=== PATIENT | male | born 1955 | race African-American/Black ===

== ENCOUNTER 2017-08-26 13:03 | Emergency (ER) | payer MEDICAID, OTHER ==
[~2017-08-26] VITALS: Ht 188 cm; Wt 79.4 kg
[2017-08-26 13:59] VITALS: BP 136/86
[2017-08-26] MEDS ORDERED: PREDNISONE20 MG ORAL (14:50)
[2017-08-26] MEDS ORDERED: BENADRYL25 MG ORAL (14:50)
[2017-08-26] MEDS ORDERED: TRAMADOL HCL50 MG ORAL (14:50)
[2017-08-26] MEDS ORDERED: NORVASC5 MG ORAL (14:51)
--- NOTE | 2017-08-26 15:16 | Emergency Room Report ---
History of Present Illness General Chief Complaint: General Complaint Source: Patient Present Illness HPI The patient is a 62-year-old male with a history of hypertension presenting for swollen lip. He states that he woke with this this morning for no known reason. He states that his blood pressure medication was changed to lisinopril several months prior but had no prior reaction. He denies any pain. He denies difficulty swallowing or shortness of breath. He denies any rash or itching. He denies any other symptoms including N, V, F, chills, diarrhea, abd pain, CP, cough Allergies: Coded Allergies: No Known Allergies (Unverified , 08/26/17) Patient History Past Medical History: see triage record Pertinent Family History: none Reviewed Nursing Documentation: PMH: Agreed, PSxH: Agreed Nursing Documentation-PMH Past Medical History: No Stated History Hx Hypertension: Yes Hx Gastrointestinal Problems: No - BPH Review of Systems All Other Systems: negative except mentioned in HPI Physical Exam Vital Signs Date Time Temp Pulse Resp B/P (MAP) Pulse Ox O2 Delivery O2 Flow Rate FiO2 08/26/17 13:09 98.1 69 20 136/86 100 Room Air Sp02 EP Interpretation: reviewed, normal General Appearance: no apparent distress, alert, GCS 15, non-toxic Head: normocephalic, atraumatic Eyes: bilateral eye normal inspection, bilateral eye PERRL ENT: hearing grossly normal, normal pharynx, normal voice, uvula midline, moist mucus membranes, other - angioedema to upper lip only Neck: full range of motion, supple/symm/no masses Respiratory: chest non-tender, lungs clear, normal breath sounds, speaking full sentences Cardiovascular #1: regular rate, rhythm, no edema Musculoskeletal: back normal, gait/station normal, normal range of motion, tender - bilat lumbar paraspinal muscles Neurologic: alert, oriented x3, responsive, motor strength/tone normal, sensory intact, speech normal Psychiatric: judgement/insight normal, memory normal, mood/affect normal, no suicidal/homicidal ideation Skin: normal color, no rash, warm/dry, well hydrated Lymphatic: no adenopathy Medical Decision Making PA Attestation Dr. Hair is my supervising physician. Patient management was discussed with my supervising physician Diagnostic Impression: Primary Impression: Angioedema Qualified Codes: T78.3XXA - Angioneurotic edema, initial encounter Additional Impression: Chronic back pain Qualified Codes: M54.5 - Low back pain; G89.29 - Other chronic pain ER Course The patient is a 62-year-old male with a history of hypertension on KARIN-I presenting for swollen lip. DDx considered but not limited to: KARIN-I induced angioedema, anaphylaxis, dermatitis, herpes, among others PE: vitals WNL. NAD HEENT: There is edema to upper lip only. Non tender. No discoloration. Oropharynx patent. No edema. Lungs CTA bilat Skin is warm and dry. No rash Pt is given prednisone and benadryl and is watched in the ED. Swelling has decreased and no new symptoms have arisen. the patient will stop taking lisinopril. he is given prescription for norvasc, Benadryl, and prednisone and needs to FU with PMD. Last Vital Signs Date Time Temp Pulse Resp B/P (MAP) Pulse Ox O2 Delivery O2 Flow Rate FiO2 08/26/17 13:59 98.1 68 20 136/86 100 Room Air Status: improved Disposition: HOME, SELF-CARE Condition: Improved Scripts Amlodipine Besylate (Norvasc) 5 Mg Tablet 5 MG ORAL DAILY, #30 TAB Prov: TERZIAN,NOEMÍ P.A. 08/26/17 Diphenhydramine Hcl* (BENADRYL*) 25 Mg Capsule 25 MG ORAL Q6H Y for Itching, #30 CAP Prov: TERZIAN,NOEMÍ P.A. 08/26/17 Prednisone* (PREDNISONE*) 20 Mg Tablet 40 MG ORAL DAILY, #10 TAB Prov: TERZIAN,NOEMÍ P.A. 08/26/17 Tramadol Hcl* (ULTRAM*) 50 Mg Tablet 50 MG ORAL Q6H Y for For Pain, #10 TAB 0 Refills Prov: TERZIAN,NOEMÍ P.A. 08/26/17 Patient Instructions: Angioedema, Chronic Back Pain Additional Instructions: I discussed my findings with the patient. All questions and concerns have been answered. Treatment and medication compliance have been addressed. I advised the patient that they need to follow up with PMD in 3-5 days. Return to ED if symptoms worsen, new symptoms arise such as shortness of breath, or if needed for any reason. Patient verbalized understanding of discharge instructions. The patient was told he needs to stop taking lisinopril and see primary doctor as soon as possible. NOEMÍ LOMELI Aug 26, 2017 15:16
[2017-08-26 15:20] VITALS: BP 136/86
== END 2017-08-26 15:00 | disposition home or self-care (01) ==
LOC: EMR 13:36
DX: T78.3XXA Angioneurotic edema, initial encounter (principal); I10 Essential (primary) hypertension; G89.29 Other chronic pain; M54.9 Dorsalgia, unspecified; Z79.899 Other long term (current) drug therapy; N40.0 Benign prostatic hyperplasia without lower urinary tract symptoms
CPT/HCPCS: 99284

== ENCOUNTER 2019-08-16 22:40 | Inpatient (IN) | payer OTHER ==
[~2019-08-16] VITALS: Ht 182.9 cm; Wt 95.3 kg
[~2019-08-16 22:40] MED LIST: BENADRYL25 MG ORAL; NORVASC5 MG ORAL; PREDNISONE20 MG ORAL; TRAMADOL HCL50 MG ORAL
[2019-08-16 23:02] VITALS: BP 179/88
--- NOTE | 2019-08-16 23:04 | Emergency Room Report ---
History of Present Illness General Chief Complaint: Substance Abuse Source: Patient, EMS, Law Enforcement Present Illness HPI The patient was brought in by [facility] and [employer]. A concerned bystander saw the patient was altered. Allegedly he has been doing PCP. [employer] were required to subdue the patient. The patient denies any pain at this time for suicidal intent. He is having difficulty answering questions. Accu-Chek in the field was normal. An EKG was performed that showed left ventricular hypertrophy. 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 Nursing Documentation: PMH: Agreed; PSxH: Agreed Nursing Documentation-PMH Hx Hypertension: Yes Hx Gastrointestinal Problems: No - BPH Review of Systems All Other Systems: limited Physical Exam Vital Signs Date Time Temp Pulse Resp B/P (MAP) Pulse Ox O2 Delivery O2 Flow Rate FiO2 08/16/19 22:50 98.2 128 20 128/88 (101) 98 Room Air Sp02 EP Interpretation: reviewed, normal General Appearance: well appearing, no apparent distress, lethargic Head: normocephalic Eyes: bilateral eye PERRL, bilateral eye Scleral Injection ENT: moist mucus membranes Neck: supple Respiratory: lungs clear, normal breath sounds Cardiovascular #1: tachycardia Cardiovascular #2: 2+ radial (R) Gastrointestinal: normal inspection, non tender, non-distended, decreased bowel sounds, scaphoid Musculoskeletal: back normal, normal range of motion Neurologic: motor strength/tone normal, DTRs symmetric, sensory intact, no Babinski, other - Lethargic occasionally responding to verbal commands Psychiatric: depressed affect Skin: no rash Procedures Critical Care Time Critical Care Time Total Critical Care Time: 30 min bedside evaluation and treatment excludes procedures (EKG). Reason for critical care: Multiple assessments for restraints, non-STEMI Possible complications: hypotension, hypertension, OH, shock, arrhythmias, metabolic acidosis, end organ damage, respiratory failure. Interventions: Restraints, reassessment, aspirin and nitroglycerin Course: Patient presented after alleged ingestion of PCP and not responding to external stimuli. Patient necessitated restraints. No further sedation was needed. Reassessment led to removal of restraints. Patient with renal insufficiency and marginally normal troponin. Repeat troponin is elevated. Patient treated with aspirin and nitroglycerin paste. Repeated EKG performed unchanged. Patient admitted to telemetry with discussion with admitting physician. Consultations: nursing staff, EMS, [employer], admitting physician Performed by: Dr. Hair Tolerated well condition = serious Medical Decision Making Medical: Substance Abuse Reaction to Intervention: No change Restraint Reassesment I, Han Hair MD, have personally evaluated this patient. Laboratory tests have been reviewed and addressed accordingly. The patient is deemed to present a danger to themselves and/or others. This is based on the exam, history ( provided by EMS and [employer]) and observed or reported behavior. Attempts for non-invasive measures have been considered and/or attempted, however, have been futile. It is in the best interest of the nursing staff, the patient, and others involved in this patient's care that behavioral restraints be applied. Patient evaluation reveals the following: Not responding to external stimuli or commands. Diagnostic Impression: Primary Impression: NSTEMI (non-ST elevated myocardial infarction) Additional Impression: Substance abuse ER Course Patient presents after alleged PCP use with altered mentation. Differential includes PCP ingestion, polypharmacy abuse, electrolyte imbalance amongst others. There is no evidence of head trauma. Rather than performing a CT the head repeated neurologic exams will be undertaken. Patient will be evaluated with EKG, chest x-ray and labs. The patient will receive IV hydration. The patient is placed on a monitoring analyst. As the patient is not responding to external stimuli he is placed in other restraints. EKG with LVH without STEMI. Chest x-ray clear. CBC and CMP remarkable for renal insufficiency and minimally elevated CPK.. Tox screen positive for PCP and THC. Initial troponin was marginally normal. Repeat troponin ordered. In addition repeat CMP performed. Repeat troponin positive. Patient treated with aspirin and nitroglycerin paste. Repeat EKG ordered. Patient is pain-free 2:20 neurologically he is oriented x3 and appropriate. He denies suicidal or homicidal ideation. Repeat EKG with sinus bradycardia rate 58 left atrial enlargement LVH and nonspecific ST-T wave changes without STEMI. Blood pressure better with nitrates and also patient treated with Norvasc. Unable to give beta-blockers because of bradycardia. Patient admitted to telemetry. Laboratory Tests Test 08/16/19 23:15 08/17/19 01:40 White Blood Count 9.2 K/UL (4.8-10.8) Red Blood Count 4.19 M/UL (4.70-6.10) L Hemoglobin 13.6 G/DL (14.2-18.0) L Hematocrit 40.5 % (42.0-52.0) L Mean Corpuscular Volume 97 FL (80-99) Mean Corpuscular Hemoglobin 32.4 PG (27.0-31.0) H Mean Corpuscular Hemoglobin Concent 33.6 G/DL (32.0-36.0) Red Cell Distribution Width 12.6 % (11.6-14.8) Platelet Count 205 K/UL (150-450) Mean Platelet Volume 10.1 FL (6.5-10.1) Neutrophils (%) (Auto) 66.8 % (45.0-75.0) Lymphocytes (%) (Auto) 23.9 % (20.0-45.0) Monocytes (%) (Auto) 5.7 % (1.0-10.0) Eosinophils (%) (Auto) 2.5 % (0.0-3.0) Basophils (%) (Auto) 1.1 % (0.0-2.0) Urine Color Pale yellow Urine Appearance Clear Urine pH 5 (4.5-8.0) Urine Specific [place] 1.015 (1.005-1.035) Urine Protein 2+ (NEGATIVE) H Urine Glucose (UA) Negative (NEGATIVE) Urine Ketones Negative (NEGATIVE) Urine Blood 1+ (NEGATIVE) H Urine Nitrite Negative (NEGATIVE) Urine Bilirubin Negative (NEGATIVE) Urine Urobilinogen Normal MG/DL (0.0-1.0) Urine Leukocyte Esterase 1+ (NEGATIVE) H Urine RBC 0-2 /HPF (0 - 0) H Urine WBC 0-2 /HPF (0 - 0) Urine Squamous Epithelial Cells None /LPF (NONE/OCC) Urine Bacteria Few /HPF (NONE) Sodium Level 140 MMOL/L (136-145) 141 MMOL/L (136-145) Potassium Level 3.6 MMOL/L (3.5-5.1) 3.6 MMOL/L (3.5-5.1) Chloride Level 103 MMOL/L (98-107) 105 MMOL/L (98-107) Carbon Dioxide Level 26 MMOL/L (21-32) 28 MMOL/L (21-32) Anion Gap 11 mmol/L (5-15) 8 mmol/L (5-15) Blood Urea Nitrogen 26 mg/dL (7-18) H 25 mg/dL (7-18) H Creatinine 1.4 MG/DL (0.55-1.30) H 1.2 MG/DL (0.55-1.30) Estimate Glomerular Filtration Rate > 60 mL/min (>60) > 60 mL/min (>60) Glucose Level 99 MG/DL (74-106) 100 MG/DL (74-106) Calcium Level 9.5 MG/DL (8.5-10.1) 9.4 MG/DL (8.5-10.1) Total Bilirubin 0.4 MG/DL (0.2-1.0) 0.3 MG/DL (0.2-1.0) Aspartate Amino Transferase (AST) 40 U/L (15-37) H 41 U/L (15-37) H Alanine Aminotransferase (ALT) 40 U/L (12-78) 38 U/L (12-78) Alkaline Phosphatase 166 U/L (46-116) H 169 U/L (46-116) H Total Creatine Kinase 630 U/L (26-308) H Troponin I 0.054 ng/mL (0.000-0.056) 0.117 ng/mL (0.000-0.056) Total Protein 7.6 G/DL (6.4-8.2) 7.4 G/DL (6.4-8.2) Albumin 3.9 G/DL (3.4-5.0) 3.6 G/DL (3.4-5.0) Globulin 3.7 g/dL 3.8 g/dL Albumin/Globulin Ratio 1.1 (1.0-2.7) 0.9 (1.0-2.7) L Salicylates Level 3.0 ug/mL (2.8-20) Urine Opiates Screen Negative (NEGATIVE) Acetaminophen Level < 2 MCG/ML (10-30) L Urine Barbiturates Screen Negative (NEGATIVE) Phencyclidine (PCP) Screen Positive (NEGATIVE) H Urine Amphetamines Screen Negative (NEGATIVE) Urine Benzodiazepines Screen Negative (NEGATIVE) Urine Cocaine Screen Negative (NEGATIVE) Urine Marijuana (THC) Screen Positive (NEGATIVE) H Serum Alcohol < 3 mg/dL EKG Diagnostic Results Rate: normal Rhythm: NSR ST Segments: no acute changes - Left ventricular hypertrophy right axis Rhythm Strip Diag. Results EP Interpretation: yes Rhythm: NSR, no PVC's, no ectopy Chest X-Ray Diagnostic Results Chest X-Ray Diagnostic Results : Chest X-Ray Ordered: Yes # of Views/Limited/Complete: 1 View Indication: Other EP Interpretation: Yes Interpretation: no consolidation, no effusion, no pneumothorax Impression: No acute disease Electronically Signed by: Electronically signed by Han Hair MD Status: improved Disposition: ADMITTED INPATIENT Condition: Serious Han Hair MD Aug 16, 2019 23:04
[2019-08-16 23:17] VITALS: BP 170/82
[2019-08-16 23:24] VITALS: BP 172/82
[2019-08-16 23:32] VITALS: BP 179/80
[2019-08-16 23:35] LABS: APPEARANCE,URINE CLEAR; BILIRUBIN, URINE NEGATIVE (NEGATIVE); COLOR,URINE PALE YELLOW; GLUCOSE, URINE (UA) NEGATIVE (NEGATIVE); KETONES,URINE NEGATIVE (NEGATIVE); LEUKOCYTE ESTERASE ,URINE 1+ (NEGATIVE); NITRITE,URINE NEGATIVE (NEGATIVE); PH,URINE 5 (4.5-8.0); PROTEIN,URINE 2+ (NEGATIVE); UROBILINOGEN,URINE NORMAL MG/DL (0.0-1.0)
[2019-08-16 23:42] LABS: BASOPHILS % (AUTO) 1.1 % (0.0-2.0); EOSINOPHILS % (AUTO) 2.5 % (0.0-3.0); HEMATOCRIT 40.5 % (42.0-52.0); HEMOGLOBIN 13.6 G/DL (14.2-18.0); LYMPHOCYTES % (AUTO) 23.9 % (20.0-45.0); MEAN CORPUSCULAR VOLUME 97 FL (80-99); MONOCYTES % (AUTO) 5.7 % (1.0-10.0); NEUTROPHILS % (AUTO) 66.8 % (45.0-75.0); PLATELET COUNT 205 K/UL (150-450); RED BLOOD COUNT 4.19 M/UL (4.70-6.10); RED CELL DISTRIBUTION WIDTH 12.6 % (11.6-14.8); WHITE BLOOD COUNT 9.2 K/UL (4.8-10.8)
[2019-08-16 23:45] LABS: ANION GAP 11 mmol/L (5-15); BLOOD UREA NITROGEN 26 mg/dL (7-18); CALCIUM 9.5 MG/DL (8.5-10.1); CARBON DIOXIDE 26 MMOL/L (21-32); CHLORIDE 103 MMOL/L (98-107); CREATININE 1.4 MG/DL (0.55-1.30); POTASSIUM 3.6 MMOL/L (3.5-5.1); SODIUM 140 MMOL/L (136-145)
[2019-08-16 23:47] VITALS: BP 172/81
[2019-08-16 23:50] LABS: ALANINE AMINOTRANSFERASE 40 U/L (12-78); ALBUMIN 3.9 G/DL (3.4-5.0); ALBUMIN/GLOBULIN RATIO 1.1 (1.0-2.7); ALKALINE PHOSPHATASE 166 U/L (46-116); ASPARTATE AMINO TRANSFERASE 40 U/L (15-37); BILIRUBIN,TOTAL 0.4 MG/DL (0.2-1.0); CREATINE KINASE 630 U/L (26-308)
[2019-08-17] VITALS (8 sets, daily range): BP systolic 134–180; BP diastolic 73–79
[2019-08-17 02:07] LABS: ANION GAP 8 mmol/L (5-15); BLOOD UREA NITROGEN 25 mg/dL (7-18); CALCIUM 9.4 MG/DL (8.5-10.1); CARBON DIOXIDE 28 MMOL/L (21-32); CHLORIDE 105 MMOL/L (98-107); CREATININE 1.2 MG/DL (0.55-1.30); POTASSIUM 3.6 MMOL/L (3.5-5.1); SODIUM 141 MMOL/L (136-145)
[2019-08-17 02:11] LABS: ALANINE AMINOTRANSFERASE 38 U/L (12-78); ALBUMIN 3.6 G/DL (3.4-5.0); ALBUMIN/GLOBULIN RATIO 0.9 (1.0-2.7); ALKALINE PHOSPHATASE 169 U/L (46-116); ASPARTATE AMINO TRANSFERASE 41 U/L (15-37); BILIRUBIN,TOTAL 0.3 MG/DL (0.2-1.0)
[2019-08-17] MEDS ORDERED: Nitroglycerin 2% oint pkt TOPIC ONE (02:30)
[2019-08-17] MEDS ORDERED: HYDROCHLOROTHIA25 MG ORAL (03:16)
[2019-08-17] MEDS ORDERED: HydrALAZINE 25mg tab ORAL PRN ×2 (05:00→16:00)
[2019-08-17] MEDS ORDERED: Nitroglycerin Subl 0.4mg tab SL PRN ×2 (07:15→16:00)
--- NOTE | 2019-08-17 08:00 | History and Physical Report ---
DATE OF ADMISSION: 08/17/2019 REASON FOR ADMISSION: 1. Confusion. 2. Drug use. HISTORY OF PRESENT ILLNESS: The patient is a 64-year-old gentleman, brought in by the [employer] and EMS after patient was found confused, disoriented on the street, concerned by bystander. The patient noted to be doing PCP and marijuana. No suicidal intent. The patient is very aggravated, angry, blaming his situation on the inability to procure his opioid narcotics. Demanding pain management. No chest pain, nausea, vomiting, diarrhea. ALLERGIES: No known drug allergies. PAST MEDICAL HISTORY: Hypertension, opioid dependency. FAMILY HISTORY: Positive for hypertension PAST SURGICAL HISTORY: Noncontributory. REVIEW OF SYSTEMS: NEUROLOGIC: The patient denies headache, change in vision, syncope, or presyncopal episodes. CARDIOVASCULAR: No current chest pain, palpitations, angina. PULMONARY: No difficulty breathing, productive cough, sputum. GASTROINTESTINAL/ GENITOURINARY: No change in urine or bowel habits. No nausea, vomiting, or diarrhea. ENDOCRINOLOGY: No night sweats, fevers, chills. MUSCULOSKELETAL: The patient is feeling weak, tired, and fatigue. LABORATORY DATA: Labs dated August 17, 2019, sodium 141, potassium 3.6, creatinine 1.2. Hemoglobin 13.6, white cell count 9.2, and platelet count 205. Toxicology screen positive for PCP and marijuana. PHYSICAL EXAMINATION: VITAL SIGNS: Blood pressure 157/79, respiratory rate 19, pulse 64, temperature 98.2, and oxygen saturation on room air. GENERAL: The patient is awake, alert, agitated, combative, aggravated over not having his opioids. HEENT: Extraocular muscles intact. NECK: No lymphadenopathy noted. CARDIOVASCULAR: S1, S2. No rubs or gallops. PULMONARY: Clear to auscultation bilaterally. No rales, rhonchi, or wheezes. ABDOMEN: Nondistended and nontender. EXTREMITIES: No edema ASSESSMENT AND PLAN: 1. Acute coronary syndrome with elevated troponin. We will consult Cardiology for further evaluation and management. The patient denies any current chest pain. 2. Altered mental status has resolved, likely due to his underlying PCP and marijuana use. The patient is opioid dependent and requesting pain management. 3. Hypertension. Adjustment has deemed appropriate. 4. DVT prophylaxis with SCDs. We will consult case coordinator and social secretary to address opioid dependency and case management and will discharge the patient once cleared by Cardiology. Tomasz Cortes MD DR: Miguel JOB#: [id number] CC:
[2019-08-17] MEDS: traMADol 50mg tab ORAL PRN ×2 (08:38→15:26)
--- NOTE | 2019-08-17 08:49 | Consultation ---
History of Present Illness General Date patient seen: Aug 17, 2019 Time patient seen: 08:46 Chief Complaint: Substance Abuse Present Illness HPI Cardiology consulted for elevated rising troponin and chest pain. He is 64 year old with Hx of HTN and drug use. He was found by EMS for AMS and was noted to be using drugs Allergies: Coded Allergies: No Known Allergies (Unverified , 08/26/17) Medication History Scheduled Amlodipine Besylate (Norvasc), 5 MG ORAL DAILY Hydrochlorothiazide* (Hydrochlorothiazide*), 25 MG ORAL DAILY, (Reported) Prednisone* (Prednisone*), 40 MG ORAL DAILY Scheduled PRN Diphenhydramine Hcl* (Benadryl*), 25 MG ORAL Q6H PRN for Itching Tramadol Hcl* (Ultram*), 50 MG ORAL Q6H PRN for For Pain Patient History Healthcare decision maker Gerson Ramirez Jr. Resuscitation status Full Code Advanced Directive on File Review of Systems Constitutional: Reports: no symptoms Eye: Reports: no symptoms ENT: Reports: no symptoms Respiratory: Reports: no symptoms Cardiovascular: Reports: chest pain Gastrointestinal: Reports: no symptoms Genitourinary: Reports: no symptoms Musculoskeletal: Reports: no symptoms Skin: Reports: no symptoms Psychiatric: Reports: no symptoms Neurological: Reports: no symptoms Endocrine: Reports: no symptoms Hematologic/Lymphatic: Reports: no symptoms Physical Exam General Appearance: alert Lines, tubes and drains: peripheral HEENT: normocephalic, atraumatic, anicteric, mucous membranes moist, PERRL Neck: non-tender, normal alignment, supple, normal inspection Respiratory/Chest: chest wall non-tender, lungs clear, normal breath sounds, no respiratory distress, no accessory muscle use Cardiovascular/Chest: normal peripheral pulses, normal rate, regular rhythm Abdomen: normal bowel sounds, non tender, soft, no organomegaly, no mass Extremities: normal range of motion, non-tender, normal inspection Skin Exam: normal pigmentation, warm/dry, cyanotic 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 normal, no motor/sensory deficits Last 24 Hour Vital Signs Date Time Temp Pulse Resp B/P (MAP) Pulse Ox O2 Delivery O2 Flow Rate FiO2 08/17/19 08:37 73 152/77 08/17/19 08:00 97.8 72 152/73 (99) 08/17/19 04:08 Room Air 08/17/19 03:31 98.2 64 19 157/79 100 Room Air 08/17/19 03:20 98.2 64 19 157/79 100 Room Air 08/17/19 02:39 60 199/88 08/17/19 02:39 199/88 08/17/19 02:10 98.2 64 19 180/79 100 Room Air 08/17/19 00:15 69 19 100 Room Air 08/17/19 00:15 98.2 62 19 180/79 100 Room Air 08/17/19 00:02 69 19 100 Room Air 08/16/19 23:47 69 19 100 Room Air 08/16/19 23:32 70 19 100 Room Air 08/16/19 23:17 76 19 100 Room Air 08/16/19 23:02 80 18 100 Room Air 08/16/19 23:00 98 20 Room Air 08/16/19 22:50 98.2 128 20 128/88 (101) 98 Room Air Intake and Output 08/16/19 08/17/19 19:00 07:00 Intake Total 1120 ml Balance 1120 ml Intake Oral 120 ml IV Total 1000 ml # Voids 2 Laboratory Tests Test 08/16/19 23:15 08/17/19 01:40 08/17/19 08:00 White Blood Count 9.2 K/UL (4.8-10.8) Pending Red Blood Count 4.19 M/UL (4.70-6.10) L Pending Hemoglobin 13.6 G/DL (14.2-18.0) L Pending Hematocrit 40.5 % (42.0-52.0) L Pending Mean Corpuscular Volume 97 FL (80-99) Pending Mean Corpuscular Hemoglobin 32.4 PG (27.0-31.0) H Pending Mean Corpuscular Hemoglobin Concent 33.6 G/DL (32.0-36.0) Pending Red Cell Distribution Width 12.6 % (11.6-14.8) Pending Platelet Count 205 K/UL (150-450) Pending Mean Platelet Volume 10.1 FL (6.5-10.1) Pending Neutrophils (%) (Auto) 66.8 % (45.0-75.0) Pending Lymphocytes (%) (Auto) 23.9 % (20.0-45.0) Pending Monocytes (%) (Auto) 5.7 % (1.0-10.0) Pending Eosinophils (%) (Auto) 2.5 % (0.0-3.0) Pending Basophils (%) (Auto) 1.1 % (0.0-2.0) Pending Urine Color Pale yellow Urine Appearance Clear Urine pH 5 (4.5-8.0) Urine Specific [place] 1.015 (1.005-1.035) Urine Protein 2+ (NEGATIVE) H Urine Glucose (UA) Negative (NEGATIVE) Urine Ketones Negative (NEGATIVE) Urine Blood 1+ (NEGATIVE) H Urine Nitrite Negative (NEGATIVE) Urine Bilirubin Negative (NEGATIVE) Urine Urobilinogen Normal MG/DL (0.0-1.0) Urine Leukocyte Esterase 1+ (NEGATIVE) H Urine RBC 0-2 /HPF (0 - 0) H Urine WBC 0-2 /HPF (0 - 0) Urine Squamous Epithelial Cells None /LPF (NONE/OCC) Urine Bacteria Few /HPF (NONE) Sodium Level 140 MMOL/L (136-145) 141 MMOL/L (136-145) Pending Potassium Level 3.6 MMOL/L (3.5-5.1) 3.6 MMOL/L (3.5-5.1) Pending Chloride Level 103 MMOL/L (98-107) 105 MMOL/L (98-107) Pending Carbon Dioxide Level 26 MMOL/L (21-32) 28 MMOL/L (21-32) Pending Anion Gap 11 mmol/L (5-15) 8 mmol/L (5-15) Blood Urea Nitrogen 26 mg/dL (7-18) H 25 mg/dL (7-18) H Pending Creatinine 1.4 MG/DL (0.55-1.30) H 1.2 MG/DL (0.55-1.30) Pending Estimat Glomerular Filtration Rate > 60 mL/min (>60) > 60 mL/min (>60) Pending Glucose Level 99 MG/DL (74-106) 100 MG/DL (74-106) Pending Calcium Level 9.5 MG/DL (8.5-10.1) 9.4 MG/DL (8.5-10.1) Pending Total Bilirubin 0.4 MG/DL (0.2-1.0) 0.3 MG/DL (0.2-1.0) Aspartate Amino Transf (AST/SGOT) 40 U/L (15-37) H 41 U/L (15-37) H Alanine Aminotransferase (ALT/SGPT) 40 U/L (12-78) 38 U/L (12-78) Alkaline Phosphatase 166 U/L (46-116) H 169 U/L (46-116) H Total Creatine Kinase 630 U/L (26-308) H Troponin I 0.054 ng/mL (0.000-0.056) 0.117 ng/mL (0.000-0.056) Total Protein 7.6 G/DL (6.4-8.2) 7.4 G/DL (6.4-8.2) Albumin 3.9 G/DL (3.4-5.0) 3.6 G/DL (3.4-5.0) Globulin 3.7 g/dL 3.8 g/dL Albumin/Globulin Ratio 1.1 (1.0-2.7) 0.9 (1.0-2.7) L Salicylates Level 3.0 ug/mL (2.8-20) Urine Opiates Screen Negative (NEGATIVE) Acetaminophen Level < 2 MCG/ML (10-30) L Urine Barbiturates Screen Negative (NEGATIVE) Phencyclidine (PCP) Screen Positive (NEGATIVE) H Urine Amphetamines Screen Negative (NEGATIVE) Urine Benzodiazepines Screen Negative (NEGATIVE) Urine Cocaine Screen Negative (NEGATIVE) Urine Marijuana (THC) Screen Positive (NEGATIVE) H Serum Alcohol < 3 mg/dL Height (Feet): 6 Height (Inches): 0.00 Weight (Pounds): 210 Medications Current Medications Medications (Trade) Dose Ordered Sig/Bobby Route PRN Reason Start Time Stop Time Status Last Admin Dose Admin Acetaminophen (Tylenol) 650 mg Q4H PRN ORAL Mild Pain/Temp > 100.5 08/17/19 05:00 09/16/19 04:59 Amlodipine Besylate (Norvasc) 10 mg DAILY ORAL 08/17/19 09:00 09/16/19 08:59 08/17/19 08:37 Aspirin (ASA) 81 mg DAILY ORAL 08/17/19 09:00 09/16/19 08:59 08/17/19 08:36 Dextrose (Dextrose 50%) 25 ml Q30M PRN IV Hypoglycemia 08/17/19 07:15 09/16/19 07:14 Dextrose (Dextrose 50%) 50 ml Q30M PRN IV Hypoglycemia 08/17/19 07:15 09/16/19 07:14 Famotidine (Pepcid) 40 mg DAILY ORAL 08/17/19 09:00 09/16/19 08:59 08/17/19 08:37 Hydralazine HCl (Apresoline) 25 mg Q6H PRN ORAL Systolic >150 08/17/19 05:00 09/16/19 04:59 Nitroglycerin (Ntg) 0.4 mg Q5M PRN SL Prn Chest Pain 08/17/19 07:15 09/16/19 07:14 Ondansetron HCl (Zofran) 4 mg Q6H PRN IVP Nausea & Vomiting 08/17/19 07:15 09/16/19 07:14 Sodium Chloride 1,000 ml @ 75 mls/hr [id number] IV 08/17/19 08:13 09/16/19 08:12 08/17/19 08:00 Tramadol HCl (Ultram) 50 mg Q6H PRN ORAL For Pain 08/17/19 07:30 08/24/19 07:29 08/17/19 08:38 Assessment/Plan Status: stable Assessment/Plan: Assessment Chest pain Elevated troponin NSTEMI Hypertension AMS Plan Heparin Aspirin Check lipid panel Trend troponin Serial EKG Nitro prn chest pain Treadmill Echocardiogram Discussed drug abuse Han Worthy MD Aug 17, 2019 08:49
[2019-08-17] MEDS ORDERED: Aspirin Baby 81mg ORAL SCH (09:00)
[2019-08-17 09:01] LABS: ANION GAP 12 mmol/L (5-15); BLOOD UREA NITROGEN 23 mg/dL (7-18); CALCIUM 9.5 MG/DL (8.5-10.1); CARBON DIOXIDE 25 MMOL/L (21-32); CHLORIDE 106 MMOL/L (98-107); CREATININE 1.2 MG/DL (0.55-1.30); POTASSIUM 3.4 MMOL/L (3.5-5.1); SODIUM 143 MMOL/L (136-145)
[2019-08-17 09:10] LABS: BASOPHILS % (AUTO) 0.6 % (0.0-2.0); EOSINOPHILS % (AUTO) 2.7 % (0.0-3.0); HEMATOCRIT 41.3 % (42.0-52.0); HEMOGLOBIN 13.9 G/DL (14.2-18.0); LYMPHOCYTES % (AUTO) 25.2 % (20.0-45.0); MEAN CORPUSCULAR VOLUME 97 FL (80-99); MONOCYTES % (AUTO) 6.8 % (1.0-10.0); NEUTROPHILS % (AUTO) 64.7 % (45.0-75.0); PLATELET COUNT 215 K/UL (150-450); RED BLOOD COUNT 4.24 M/UL (4.70-6.10); RED CELL DISTRIBUTION WIDTH 12.4 % (11.6-14.8); WHITE BLOOD COUNT 8.7 K/UL (4.8-10.8)
--- NOTE | 2019-08-17 11:14 | Diagnostic Imaging Report ---
Indication: Dyspnea Comparison: None A single view chest radiograph was obtained. Findings: Cardiomediastinal appearance is within normal limits for age. The lungs are clear. Pulmonary vascularity is appropriate. The diaphragmatic contour is smooth and costophrenic angles are sharp. No pleural effusions are identified. There is an old left clavicle fracture. Impression: No acute findings
[2019-08-17] MEDS: Docusate 100mg cap ORAL SCH (17:05)
[2019-08-17] MEDS ORDERED: Docusate 100mg cap ORAL SCH (18:00)
--- NOTE | 2019-08-17 18:08 | Cardiology Report ---
APPROVED REPORT EKG Measurement Heart [id number] Sinus bradycardia Possible Left atrial enlargement Anteroseptal infarct, age undetermined Abnormal ECG
--- NOTE | 2019-08-17 18:10 | Cardiology Report ---
APPROVED REPORT EKG Measurement Heart [id number] Normal sinus rhythm Possible Left atrial enlargement Rightward axis Left ventricular hypertrophy with repolarization abnormality Cannot rule out Septal infarct, age undetermined Abnormal ECG
[2019-08-17] MEDS ORDERED: traMADol 50mg tab ORAL PRN (21:30)
[2019-08-18 04:30] VITALS: BP 158/89
[2019-08-18] MEDS ORDERED: Lexiscan 0.4mg/5ml syringe IV PRN (07:30)
[2019-08-18 08:00] VITALS: BP 131/74
--- NOTE | 2019-08-18 08:53 | Consultation ---
History of Present Illness General Date patient seen: Aug 18, 2019 Present Illness Allergies: Coded Allergies: No Known Allergies (Unverified , 08/26/17) Medication History Scheduled Amlodipine Besylate (Norvasc), 5 MG ORAL DAILY Hydrochlorothiazide* (Hydrochlorothiazide*), 25 MG ORAL DAILY, (Reported) Prednisone* (Prednisone*), 40 MG ORAL DAILY Scheduled PRN Diphenhydramine Hcl* (Benadryl*), 25 MG ORAL Q6H PRN for Itching Tramadol Hcl* (Ultram*), 50 MG ORAL Q6H PRN for For Pain Patient History Healthcare decision maker Gerson Ramirez Jr. Resuscitation status Full Code Advanced Directive on File Physical Exam Last 24 Hour Vital Signs Date Time Temp Pulse Resp B/P (MAP) Pulse Ox O2 Delivery O2 Flow Rate FiO2 08/18/19 08:00 97.5 60 18 131/74 (93) 98 08/18/19 04:58 158/89 08/18/19 04:30 98.1 55 21 158/89 (112) 99 08/18/19 04:00 55 08/18/19 00:00 49 08/18/19 00:00 49 08/17/19 20:00 Room Air 08/17/19 20:00 54 08/17/19 20:00 98.5 54 20 155/79 (104) 98 08/17/19 16:26 97.3 59 140/74 (96) 08/17/19 16:00 61 08/17/19 16:00 Room Air 08/17/19 12:00 97.7 74 134/77 (96) 08/17/19 12:00 74 08/17/19 12:00 Room Air 08/17/19 09:00 Room Air Intake and Output 08/17/19 08/18/19 19:00 07:00 Intake Total 840 ml 1065 ml Balance 840 ml 1065 ml Intake Oral 240 ml 240 ml IV Total 600 ml 825 ml # Voids 1 2 # Bowel Movements 3 Laboratory Tests Test 08/18/19 07:40 Troponin I 0.045 ng/mL (0.000-0.056) Height (Feet): 6 Height (Inches): 0.00 Weight (Pounds): 210 Medications Current Medications Medications (Trade) Dose Ordered Sig/Bobby Route PRN Reason Start Time Stop Time Status Last Admin Dose Admin Acetaminophen (Tylenol) 650 mg Q4H PRN ORAL Mild Pain/Temp > 100.5 08/17/19 16:00 09/16/19 15:59 Amlodipine Besylate (Norvasc) 10 mg DAILY ORAL 08/18/19 09:00 09/16/19 08:59 Aspirin (ASA) 81 mg DAILY ORAL 08/18/19 09:00 09/16/19 08:59 Dextrose (Dextrose 50%) 25 ml Q30M PRN IV Hypoglycemia 08/17/19 16:15 09/16/19 07:14 Dextrose (Dextrose 50%) 50 ml Q30M PRN IV Hypoglycemia 08/17/19 16:15 09/16/19 07:14 Docusate Sodium (Colace) 100 mg TWICE A DAY ORAL 08/17/19 18:00 09/16/19 17:59 08/17/19 17:05 Famotidine (Pepcid) 40 mg DAILY ORAL 08/18/19 09:00 09/16/19 08:59 Hydralazine HCl (Apresoline) 25 mg Q6H PRN ORAL Systolic >150 08/17/19 16:00 09/16/19 15:59 08/18/19 04:58 Nitroglycerin (Ntg) 0.4 mg Q5M PRN SL Prn Chest Pain 08/17/19 16:00 09/16/19 07:14 Ondansetron HCl (Zofran) 4 mg Q6H PRN IVP Nausea & Vomiting 08/17/19 16:00 09/16/19 15:59 Regadenoson (Lexiscan) 0.4 mg ONCE PRN IV stress test 08/18/19 07:30 08/20/19 18:00 Sodium Chloride 1,000 ml @ 75 mls/hr [id number] IV 08/17/19 16:00 09/16/19 08:12 08/18/19 06:10 Tramadol HCl (Ultram) 50 mg Q6H PRN ORAL For Pain 08/17/19 21:30 08/24/19 21:29 Assessment/Plan Assessment/Plan: (1) Lumbar DDD (2) Lumbar Spondylosis (3) PCP Abuse seen dictated Donald Beth Aug 18, 2019 08:53
[2019-08-18] MEDS ORDERED: Methocarbamol 500mg tab ORAL PRN (09:15)
--- NOTE | 2019-08-18 09:25 | Discharge Instructions ---
Discharge Instructions Discharge Instructions Services at Discharge: day care Diet: 2 GM sodium (low sodium) Resume Normal Activity?: Yes Activity: light activity Follow Up Orders Follow up PCP 1week Dsicontinue illicit drug use For Congestive Heart Failure Reminder Report to your physician any weight gain of 5 pounds or more in one week. Tomasz Cortes MD Aug 18, 2019 09:24
--- NOTE | 2019-08-18 09:28 | Nephrology Progress Note ---
Assessment/Plan Status: stable Assessment/Plan: A/P 1.Acute coronary syndrome with elevated troponin. - DC today if stress test negative 2. Altered mental status has resolved- avoid PCP 3. Hypertension. Stable 4. DVT prophylaxis with SCDs. Subjective Date patient seen: Aug 18, 2019 Time patient seen: 09:25 ROS Limited/Unobtainable: Yes Allergies: Coded Allergies: No Known Allergies (Unverified , 08/26/17) Subjective Patient more calm today Wants cab voucher to [place] Objective Last 24 Hour Vital Signs Date Time Temp Pulse Resp B/P (MAP) Pulse Ox O2 Delivery O2 Flow Rate FiO2 08/18/19 08:00 97.5 60 18 131/74 (93) 98 08/18/19 04:58 158/89 08/18/19 04:30 98.1 55 21 158/89 (112) 99 08/18/19 04:00 55 08/18/19 00:00 49 08/18/19 00:00 49 08/17/19 20:00 Room Air 08/17/19 20:00 54 08/17/19 20:00 98.5 54 20 155/79 (104) 98 08/17/19 16:26 97.3 59 140/74 (96) 08/17/19 16:00 61 08/17/19 16:00 Room Air 08/17/19 12:00 97.7 74 134/77 (96) 08/17/19 12:00 74 08/17/19 12:00 Room Air Intake and Output 08/17/19 08/18/19 19:00 07:00 Intake Total 840 ml 1065 ml Balance 840 ml 1065 ml Intake Oral 240 ml 240 ml IV Total 600 ml 825 ml # Voids 1 2 # Bowel Movements 3 Laboratory Tests 08/18/19 07:40: Troponin I 0.045 Height (Feet): 6 Height (Inches): 0.00 Weight (Pounds): 210 General Appearance: no apparent distress, alert EENT: normal ENT inspection Neck: normal alignment Cardiovascular: normal rate, regular rhythm Respiratory/Chest: lungs clear, normal breath sounds Abdomen: non tender, soft Edema: no edema noted Arm (L), no edema noted Arm (R), no edema noted Leg (L), no edema noted Leg (R), no edema noted Pedal (L), no edema noted Pedal (R), no edema noted Generalized Tomasz Cortes MD Aug 18, 2019 09:28
[2019-08-18] MEDS: Docusate 100mg cap ORAL SCH ×2 (10:47→18:13)
[2019-08-18] MEDS: Aspirin Baby 81mg ORAL SCH (10:47)
--- NOTE | 2019-08-18 13:11 | Cardiology Progress Note ---
Assessment/Plan Status: stable Assessment/Plan Assessment/Plan Status: stable Assessment/Plan: Assessment Chest pain Elevated troponin NSTEMI Hypertension AMS Plan Heparin Aspirin Check lipid panel Trend troponin Serial EKG Nitro prn chest pain DObutamine Echocardiogram Discussed drug abuse Subjective Cardiovascular: Reports: no symptoms Respiratory: Reports: no symptoms Gastrointestinal/Abdominal: Reports: no symptoms Genitourinary: Reports: no symptoms Subjective No acute events, for stress test today Objective Last 24 Hour Vital Signs Date Time Temp Pulse Resp B/P (MAP) Pulse Ox O2 Delivery O2 Flow Rate FiO2 08/18/19 10:48 60 131/74 08/18/19 08:00 97.5 60 18 131/74 (93) 98 08/18/19 04:58 158/89 08/18/19 04:30 98.1 55 21 158/89 (112) 99 08/18/19 04:00 55 08/18/19 00:00 49 08/18/19 00:00 49 08/17/19 20:00 Room Air 08/17/19 20:00 54 08/17/19 20:00 98.5 54 20 155/79 (104) 98 08/17/19 16:26 97.3 59 140/74 (96) 08/17/19 16:00 61 08/17/19 16:00 Room Air General Appearance: no apparent distress, alert EENT: PERRL/EOMI, normal ENT inspection, TMs normal, pharynx normal Neck: non-tender, normal alignment, supple Rhythm: NSR Cardiovascular: normal peripheral pulses, normal rate, regular rhythm Respiratory/Chest: chest wall non-tender, lungs clear, normal breath sounds Abdomen: normal bowel sounds, non tender, soft, no organomegaly Extremities: normal range of motion, non-tender, normal inspection, no calf tenderness, no swelling Neurologic: poll watcher II-XII grossly normal, no motor/sensory deficits Intake and Output 08/17/19 08/18/19 19:00 07:00 Intake Total 840 ml 1065 ml Balance 840 ml 1065 ml Intake Oral 240 ml 240 ml IV Total 600 ml 825 ml # Voids 1 2 # Bowel Movements 3 Laboratory Tests Test 08/18/19 07:40 Troponin I 0.045 ng/mL (0.000-0.056) Han Worthy MD Aug 18, 2019 13:11
[2019-08-18 16:00] VITALS: BP 162/77
--- NOTE | 2019-08-18 16:06 | Diagnostic Imaging Report ---
Indication: Elbow pain Technique: 2 views of the right elbow Comparison: None FINDINGS/IMPRESSION: Bony mineralization within normal limits. No definite/displaced acute fractures identified. The elbow joint is maintained, without evidence of dislocation. No abnormal elbow joint effusion. A small enthesophyte is noted at the insertion of the triceps tendon. A forearm IV line noted. No radiopaque foreign body.
--- NOTE | 2019-08-18 16:07 | Diagnostic Imaging Report ---
Indication: Elbow pain Technique: 2 views of the left elbow Comparison: None FINDINGS/IMPRESSION: Bony mineralization within normal limits. No definite/displaced acute fractures identified. Elbow joint maintained, without evidence of dislocation. No abnormal elbow joint effusion. No radiopaque foreign body.
[2019-08-18 20:00] VITALS: BP 142/77
[2019-08-19] VITALS: BP 134/68
[2019-08-19 04:00] VITALS: BP 148/83
--- NOTE | 2019-08-19 04:15 | Consultation ---
DATE OF CONSULTATION: 08/18/2019 PAIN MANAGEMENT CONSULTATION CONSULTING PHYSICIAN: Fay Davies M.D. REFERRING PHYSICIAN: Tomasz Cortes M.D. PHYSICIAN RESTAURANT COOK: SANIA Chacko. CHIEF COMPLAINT: Low back pain. HISTORY OF PRESENT ILLNESS: This is a 64-year-old male, who is being seen on the telemetry floor of [facility] for initial pain management consultation. The patient was admitted under the care of Dr. Cortes due to chest pain, possible non-STEMI and has been having low back pain, stabbing, sharp shooting pain, which is worse with movement and has been tolerated with pain medication as an outpatient which he states he is receiving from Dr. De Leon, however, has not been able to get his Rx filled due to issue. Now has been admitted to the hospital. Urine exam was done showing the patient has been positive for PCP, which the patient is doing. At this time, I had a detailed discussion about substance abuse and need for cessation of the substance use and that the narcotic medications would not be prescribed for discharged which the patient seems to understand. At this time, we were consulted so that the patient would have adequate pain control while here in the hospital. He is on tramadol 50 mg q.4 hours as needed, which will be continued. While here in the hospital, we will start the patient on a muscle relaxer and Neurontin, he seems to understand, as well as order MRI of the lumbar spine without contrast to rule out further pathology in the lower back. PAST MEDICAL HISTORY: Hypertension. PAST SURGICAL HISTORY: Denies. SOCIAL HISTORY: Marijuana use, PCP, alcohol use. ALLERGIES: No known drug allergies. REVIEW OF SYSTEMS: Denies rash, fever, chills, sweating, dizziness, drowsiness, blurred vision, sore throat, or change in weight. No shortness of breath or chest pain. No nausea, vomiting, or blood in the stool or urine. No bowel or bladder incontinence. No dysuria. He complains of low back pain. PHYSICAL EXAMINATION: GENERAL: Alert, awake, and oriented. VITAL SIGNS: Stable. LUNGS: Decreased breath sounds bilaterally. HEART: S1 and S2, regular. ABDOMEN: Soft, nontender. BACK: Range of motion is decreased in flexion and extension. EXTREMITIES: Upper and lower extremity range of motion is decreased due to the patient's condition. No cyanosis. No clubbing. Sensory is intact. Reflexes are not obtainable. No adenopathy. ASSESSMENT AND PLAN: This is a 64-year-old male with lumbar degenerative disk disease, lumbar spondylosis, PCP abuse. The patient at this time will be continued on tramadol while here in the hospital. We will start the patient on Robaxin 500mg Q8H as needed for muscle spasm, Neurontin 300 mg tablets three times a day. We will order MRI of the lumbar spine w/o contrast pathology in the lower back. The patient was discussed with Dr. Davies and Dr. Davies concurred. We will follow the patient. Thank you very much for the courtesy of this consultation. Fay Davies M.D. SANIA Chacko DR: AKASH JOB#: [id number] CC: CHAN
[2019-08-19 08:00] VITALS: BP 152/72
--- NOTE | 2019-08-19 09:08 | Nephrology Progress Note ---
Assessment/Plan Status: stable Assessment/Plan: A/P 1.Acute coronary syndrome with elevated troponin. - DC today once MRI results return - DC today when cleared by cardiology 2. Altered mental status has resolved- avoid PCP 3. Hypertension. Stable 4. DVT prophylaxis with SCDs. Subjective Date patient seen: Aug 19, 2019 Time patient seen: 09:06 ROS Limited/Unobtainable: No Allergies: Coded Allergies: No Known Allergies (Unverified , 08/26/17) Subjective Patient awaiting C once MRI results return Objective Last 24 Hour Vital Signs Date Time Temp Pulse Resp B/P (MAP) Pulse Ox O2 Delivery O2 Flow Rate FiO2 08/19/19 04:00 95 08/19/19 04:00 97.7 95 18 148/83 (104) 98 08/19/19 00:00 55 08/19/19 00:00 97.7 55 18 134/68 (90) 97 08/18/19 21:00 Room Air 08/18/19 20:00 98.3 82 18 142/77 (98) 98 08/18/19 20:00 82 08/18/19 16:00 98.1 69 20 162/77 (105) 97 08/18/19 16:00 82 08/18/19 12:00 62 08/18/19 10:48 60 131/74 Intake and Output 08/18/19 08/19/19 19:00 07:00 Intake Total 140 ml Balance 140 ml Intake Oral 140 ml # Voids 3 3 Height (Feet): 6 Height (Inches): 0.00 Weight (Pounds): 210 General Appearance: no apparent distress, alert EENT: normal ENT inspection Neck: normal alignment, supple Cardiovascular: normal rate, regular rhythm Respiratory/Chest: lungs clear, normal breath sounds Abdomen: non tender, soft Edema: no edema noted Arm (L), no edema noted Arm (R), no edema noted Leg (L), no edema noted Leg (R), no edema noted Pedal (L), no edema noted Pedal (R), no edema noted Generalized Tomasz Cortes MD Aug 19, 2019 09:08
[2019-08-19] MEDS: Aspirin Baby 81mg ORAL SCH (09:22)
[2019-08-19] MEDS: Docusate 100mg cap ORAL SCH (09:22)
--- NOTE | 2019-08-19 10:20 | General Progress Note ---
Assessment/Plan Assessment/Plan: (1) Lumbar DDD (2) Lumbar Spondylosis (3) PCP Abuse Patient to be continued on Tramadol, Neurontin and Robaxin, MRI L spine pending results. RX for Neurontin and Robaxin written in anticipation for discharge. D/w Dr. Davies and he concurred. Subjective Date patient seen: Aug 19, 2019 Time patient seen: 09:30 - am Constitutional: Reports: no symptoms HEENT: Reports: no symptoms Cardiovascular: Reports: no symptoms Respiratory: Reports: no symptoms Gastrointestinal/Abdominal: Reports: no symptoms Genitourinary: Reports: no symptoms Neurologic/Psychiatric: Reports: no symptoms Endocrine: Reports: no symptoms Hematologic/Lymphatic: Reports: no symptoms Allergies: Coded Allergies: No Known Allergies (Unverified , 08/26/17) Subjective Patient is doing better and pain has been tolerated, He has performed the MRI of L spine and is pending results. At this time again d/w him about opioid medication and due to his urine positive for illegal substance we would not be able to prescribe him opioid medication for discharge. He seems to understand. Objective Last 24 Hour Vital Signs Date Time Temp Pulse Resp B/P (MAP) Pulse Ox O2 Delivery O2 Flow Rate FiO2 08/19/19 09:23 61 152/72 08/19/19 04:00 95 08/19/19 04:00 97.7 95 18 148/83 (104) 98 08/19/19 00:00 55 08/19/19 00:00 97.7 55 18 134/68 (90) 97 08/18/19 21:00 Room Air 08/18/19 20:00 98.3 82 18 142/77 (98) 98 08/18/19 20:00 82 08/18/19 16:00 98.1 69 20 162/77 (105) 97 08/18/19 16:00 82 08/18/19 12:00 62 08/18/19 10:48 60 131/74 Intake and Output 08/18/19 08/19/19 19:00 07:00 Intake Total 140 ml 120 ml Balance 140 ml 120 ml Intake Oral 140 ml 120 ml # Voids 3 3 Height (Feet): 6 Height (Inches): 0.00 Weight (Pounds): 210 General Appearance: no apparent distress, alert EENT: PERRL/EOMI, normal ENT inspection Neck: non-tender, normal alignment Cardiovascular: normal rate, regular rhythm Respiratory/Chest: lungs clear, normal breath sounds Abdomen: non tender, soft Extremities: non-tender Edema: no edema noted Generalized Neurologic: alert, oriented x 3 Skin: normal pigmentation Donald Beth Aug 19, 2019 10:20
[2019-08-19 12:00] VITALS: BP 141/73
--- NOTE | 2019-08-19 12:51 | Diagnostic Imaging Report ---
Indication: chest pain Technique: The study was conducted under the supervision of a balloon dipper. lexiscan (regadenoson) infusion over 10 seconds followed by intravenous administration of 30.2 mCi of technetium 99m Myoview was performed. Three plane SPECT imaging of the heart was then performed. A resting study was performed as part of the one-day protocol with 10.1 mCi of technetium 99m myoview injected intravenously at that time. Three plane SPECT imaging of the heart was obtained. Comparison: None Clinical data: 1. Clinical response: Non ischemic 2. Electrocardiographic response: Non ischemic Findings: The myocardial perfusion scan demonstrates no definite fixed or reversible perfusion defects. There is some attenuation of the inferior wall suspected. LVEF estimated at 71%. IMPRESSION: No evidence of myocardial ischemia. Suspected diaphragmatic attenuation of inferior wall
--- NOTE | 2019-08-19 13:52 | Diagnostic Imaging Report ---
Indication: Back pain Technique: MRI examination of the lumbar spine was performed in a 1.5 Radha magnet. Sequences obtained include sagittal and axial T1 and T2 fast spin echo, and sagittal STIR. Comparison: none Findings: The visualized part of the distal thoracic cord is unremarkable. Conus medullaris demonstrated at the L1-2 disc level. L1-2: There is a minimal retrolisthesis at this level. Mild endplate spurs are noted with narrowing of intervertebral disc and hypertrophied facets. There is mild to moderate neural foraminal stenosis at this level. L2-3: Minimal concentric disc bulge demonstrated. Hypertrophied facets noted. Mild to moderate foraminal stenosis demonstrated. L3-4: The disc appears relatively normal. Hypertrophied facets demonstrated. Mild to moderate foraminal stenosis noted. L4-5: There is a mild anterolisthesis noted. Disc height is normal. There is a moderate to severe hypertrophy of the facets at this level with narrowing of the lateral recess and central canal. There is moderate to severe foraminal stenosis bilaterally. L5-S1: Desiccation and narrowing of the disc is mild. Moderate facet arthropathy. There is no central stenosis. There is narrowing of the lateral recess and moderate to severe bilateral foraminal stenosis. There is heterogeneous low signal intensity demonstrated within the central to posterior aspect of the L1 vertebra nonspecific. This type of signal is usually due to sclerosis or fibrosis. Suggest confirmation with plain x-ray. There is a round fat signal intensity focus involving the T12 vertebra consistent with a hemangioma. No paraspinous or paravertebral soft tissue swelling, fluid collection or mass identified. There is an incidental cyst demonstrated within the right kidney measuring about 1.9 cm. IMPRESSION: No evidence of acute injury such as a compression fracture or bone marrow edema. Degenerative disease involving the lumbar spine at the level of intervertebral discs and facets. Summary as follows: L4-5 notable for moderate central spinal stenosis and narrowing of the lateral recess and moderate to severe bilateral foraminal stenosis due to combination of factors including a moderate to severe facet arthropathy, mild anterolisthesis. L5-S1 notable for moderate to severe bilateral foraminal stenosis and narrowing of the lateral recess primarily on the basis of facet arthropathy. Intimal anterolisthesis at this level as well. L3-4 mild to moderate foraminal stenosis. L2-3: Mild to moderate foraminal stenosis. L1-2: Mild to moderate foraminal stenosis. T12 vertebral hemangioma. Focus of low signal intensity sclerosis or fibrosis involving the mid to posterior part of the L1 vertebra.
--- NOTE | 2019-08-20 14:56 | Discharge Summary ---
Discharge Summary Discharge Summary _ DATE OF ADMISSION: 08/17/2019 DATE OF DISCHARGE: 08/19/2019 DISCHARGED BY: Dr Vázquez REASON FOR ADMISSION: 64 years old male with medical history of hypertension, opioid dependency, was brought in by [employer] and EMS after he found confused, disoriented on the street , by concerned bystander. Patient apparently was doing PCP and marijuana. No suicidal intent. Patient appeared to be aggravated and angry. He demanded pain medication. No chest pain , no nausea, vomiting or diarrhea. Upon evaluation vital signs revealed tachycardia, otherwise were stable. Laboratory work-up revealed no leukocytosis , stable hemoglobin and hematocrit. BUN 26 , creatinine 1.4. Stable electrolytes. AST 40, ALT 40 , alkaline phosphatase 166 , total CK 631 . Initial troponin - 0.054, EKG revealed sinus no acute ischemic changes Urine toxicology screen was positive for phencyclidine and marijuana. Second troponin was 0.117. Patient denied any chest pain. Chest x-ray demonstrated no acute cardia pulmonary pathology Patient subsequently was given aspirin and admitted to telemetry floor for further management. CONSULTANTS: billet checker Dr. Worthy pain specialist Dr. Davies [facility]SE: Patient admitted to telemetry floor. Last troponin was negative. Myocardial perfusion scan was nonischemic with calculated ejection fraction of 71%. Antiplatelet therapy with aspirin continued. Blood pressure was managed with calcium channel cy and remained stable. Patient initially tachycardic, then tachycardia spontaneously resolved, and at times patient was bradycardic. DVT prophylaxis with heparin provided. Nitroglycerin provided as needed. GI prophylaxis provided. Renal parameters and electrolytes were closely monitored; creatinine from 1.4 down to 1.2 with IV hydration. X-ray of the left and right elbow revealed no definite or displaced acute fracture. No evidence of dislocation. No abnormal elbow joint effusion. Pain specialist followed. Pain management provided as per pain specialist recommendations. Pain management was managed with tramadol, Neurontin and Robaxin. Prescription n was written prior to discharge. MRI of the L-spine revealed no evidence of acute injury such as a compression fracture or bone marrow edema. Degenerative disease, involving the lumbar spine at the level of intervertebral discs and facets. Patient was counseled on abstinence from illicit street drugs. Patient clinically stabilized. FINAL DIAGNOSES: Elevated troponin , acute coronary syndrome Altered mental status , resolved ( likely due to PCP use) PCP and marijuana use Hypertension Lumbar DDD Lumbar spondylosis DISCHARGE MEDICATIONS: See Medication Reconciliation list. DISCHARGE INSTRUCTIONS: Patient was discharged. Follow-up with his primary care provider or community clinic in 1 week. Patient was counseled on abstinence from illicit street drugs. I have been assigned to dictate discharge summary for this account. I was not involved in the patient's management. Ruth Hayes NP Aug 20, 2019 14:56
== END 2019-08-19 15:19 | disposition home or self-care (01) | DRG 198 ==
LOC: EDBD 22:40 → EMR 23:10 → 2W 08-17 03:00 → EDBEDREQ 08-17 03:16 → 2W 08-17 04:06 → 2E 08-17 15:58
DX: I24.9 Acute ischemic heart disease, unspecified (principal); R41.82 Altered mental status, unspecified; I10 Essential (primary) hypertension; F16.10 Hallucinogen abuse, uncomplicated; F12.10 Cannabis abuse, uncomplicated; M51.36 Other intervertebral disc degeneration, lumbar region; M47.896 Other spondylosis, lumbar region; Z59.0 Homelessness; R00.0 Tachycardia, unspecified; F11.20 Opioid dependence, uncomplicated
CPT/HCPCS: 36415; 71045; 72148; 78452; 80048; 80053; 80307; 80329; 81003; 82550; 84484; 85025; 93005; 93017; 96360; 99285; J2785